=== PATIENT | male | born 1980 | race Caucasian/White ===

== ENCOUNTER 2017-03-31 10:32 | Day surgery (SDC) | payer OTHER ==
[2017-03-31 10:56] VITALS: O2SAT 96
--- NOTE | 2017-03-31 11:11 | EDPHY ---
H & P Smoking Status: Heavy smoker Time Seen by Provider: 03/31/17 10:59 HPI/ROS: CHIEF COMPLAINT: Index finger injury HISTORY OF PRESENT ILLNESS: This is a 36-year-old male presenting to the emergency department reports being at work around 0900 today the working with pneumatic total caught his left index finger in between a pneumatic cool and piece of wood. Patient states he was seen at [facility] for the injury was sent here to the ER for degloving injury partial amputation. Patient states has full range of motion, tetanus vaccine up-to-date REVIEW OF SYSTEMS: Constitutional: No fever, no chills. Eyes: No discharge. No blurred vision ENT: No sore throat. Cardiovascular: No chest pain, no palpitations. Respiratory: No cough, no shortness of breath. Gastrointestinal: No abdominal pain, no vomiting. Genitourinary: No difficulty urinating Musculoskeletal: No back pain. Left index finger injury Skin: No rashes. Neurological: No headache. (Trena Gonzalez) Physical Exam: General Appearance: Alert, no distress. Eyes: Pupils equal and round no pallor or injection. ENT, Mouth: Mucous membranes moist. Respiratory: There are no retractions, nonlabored respiratory effort Cardiovascular: Regular rate and rhythm. Gastrointestinal: Abdomen is soft and nontender. No mass Neurological: No focal deficits Skin: Warm and dry, no rashes. Musculoskeletal: Neck is supple nontender. Left index finger tip degloving distal phalanx bone .5cm showing full range of motion Extremities: full range of motion. Psychiatric: Patient is oriented X 3, calm, acting appropriate (Trena Gonzalez) Constitutional: Initial Vital Signs Temperature (C) 36.5 C 03/31/17 10:54 Heart Rate 81 03/31/17 10:54 Respiratory Rate 18 03/31/17 10:54 Blood Pressure 104/90 H 03/31/17 10:54 O2 Sat (%) 96 03/31/17 10:54 O2 Delivery Mode Room Air Allergies/Adverse Reactions: No Known Allergies Allergy (Unverified 03/31/17 10:54) Home Medications: Medication Instructions Recorded NK [No Known Home Meds] 03/31/17 Medical Decision Making - Diagnostics Imaging Results: Imaging Impressions Finger X-Ray 03/31/17 11:10 Impression: Soft tissue injury associated with the index finger. ED Course/Re-evaluation: Discussed ED plan of care: Wound irrigation, x-ray, will consult with Ortho Hand 1310: Spoke with Dr. Beckwith, patient will be going to the OR at 4:30 p.m. to groin down the distal phalanx. Wet to dry dressing with splint placed finger, patient NPO 1320: Discussed plan with patient. (Trena Gonzalez) Differential Diagnosis: Other differential diagnosis considered but not limited to finger amputation, phalanx fracture, and tendon laceration (Trena Gonzalez) Departure - Departure Disposition: To OP Cath/Surgery Clinical Impression: Degloving injury of finger Qualifiers: Encounter type: initial encounter Qualified Code(s): S61.209A - Unspecified open wound of unspecified finger without damage to nail, initial encounter Condition: Good Referrals: DR SATHISH [Other] - As per Instructions Rogelio Beckwith MD [Medical Doctor] -
[2017-03-31] MEDS ORDERED: ceFAZolin 2 GM/DEXTROSE 100 ML IV ONE ×2 (13:47→14:15)
[2017-03-31] MEDS ORDERED: HYDROmorphONE/DILAUDID 1 MG/ML SYR IVP PRN ×2 (13:48→18:09)
[2017-03-31] MEDS ORDERED: CEFAZOLIN 2 GM/DEXTROSE/100 ML BAG IV ONE (14:04)
--- NOTE | 2017-03-31 15:04 | GHP ---
[f rep st] HISTORY AND PHYSICAL DATE OF ADMISSION: 03/31/2017 CHIEF COMPLAINT: Left index finger injury. HISTORY OF PRESENT ILLNESS: The patient is a pleasant 36-year-old male who presents to the emergency department at [facility] with a left index finger injury. He reports that he was working at around 9 o' clock this morning when he had his left index finger caught in a pneumatic press , between the press and a piece of wood. The patient states he was initially seen at [facility] for the injury, and was subsequently sent to the emergency room for a degloving injury and possible partial amputation. The wound was cleaned in the ED, however, after discussion with Dr. Beckwith as the customer relations representative hand orthopedist, Presently, the patient states he has some [id number] pain, which is well controlled with medications. He notes full ROM, and states he has an up-to-date tetanus vaccine. He denies any additional injuries with this episode, as well as any significant previous injury history to the left index finger. He has no additional concerns or complaints at this time. PAST MEDICAL HISTORY: None, this patient denies any significant past medical history. PAST SURGICAL HISTORY: None, the patient states he has no previous surgical history. CURRENT MEDICATIONS: None, the patient states he does not currently taking any medications or supplements. ALLERGIES: The patient states he has no known allergies to medications. SOCIAL HISTORY: The patient states that he is a heavy smoker. The patient also reports occasional alcohol consumption. The patient denies any recreational drug use. FAMILY HISTORY: The patient reports no significant contributory family history today. The patient does state that his maternal grandfather of possible colon cancer. No additional contributory family history is reported. REVIEW OF SYSTEMS: The patient notes a possible history of heart arrhythmia with the use of Ephedra in the past. He does note that this was not worked up by any medical providers, and that he has discontinued this, and all supplements. Otherwise, a 10-point review of systems was performed today with no additional concerns, complaints, or abnormal findings not noted in the HPI or PMH. PHYSICAL EXAMINATION: VITAL SIGNS: Height is 180.34 cm, weight is 99.79 kg, blood pressure 104/90, heart rate 81, respirations 18, O2 saturation 96% on room air, temperature 36.5 degrees Celsius. GENERAL: A healthy-appearing male who presents in NAD. Nontoxic in appearance. HEENT: EOMI, PERRLA. Ears and nares are patent and without discharge. OP is clear. NECK: NTTP, full ROM, supple. Negative Lhermitte's and Spurling's right and left. No cervical LAD noted. CARDIOVASCULAR: RRR, no M/C/G/R. RESPIRATORY: CTAB, no increased WOB noted. ABDOMEN: Soft, NT/ND, no HSM noted. MUSCULOSKELETAL: The left hand reveals a left index finger Degloving of the distal phalanx bone. Approximately 5 mm of the distal soft tissue is missing. The surrounding area is consistent with a degloving injury. No extended streaking erythema, calor, discharge or induration is noted. Patient is able to flex and extend the digit with mild discomfort. Radial and ulnar pulses are intact and equal compared bilaterally. Examination of the left wrist and hand reveal NTTP of the distal radius and ulna, carpals, metacarpals 1 through 5, and digits 1, 3 through 5. ROM of digits 1, 3 through 5 are WAL compared bilaterally. DNVI BUE. SKIN: Please see above dictation. No additional ecchymosis, erythema, calor, edema is noted. NEUROLOGIC: Nonfocal, no deficits noted. DTRs are 1+ bilaterally in the UE and LE with symmetry. PSYCH: A and O x3, appropriate mood and affect. Speech noted to be fluent and fluent. RADIOGRAPHS: Three-views of the left index finger are reviewed today showing a soft tissue laceration and soft tissue loss over the distal aspect of the index finger. No underlying osseous abnormality or no foreign bodies are noted. No joint dislocation or subluxation is noted. ASSESSMENT: Left index finger distal degloving injury, traumatic amputation. PLAN: This patient's case and radiographs were discussed with Dr. Beckwith today. After discussing treatment options with the patient, including surgical intervention, surgery to completion of the amputation and possible repair of the nail matrix, were discussed, as well as risks and benefits of these procedures. At this time, the patient has elected to proceed with the completion of the amputation, and possible nail matrix repair, of the left index finger to be performed by Dr. Beckwith. A signed informed consent was obtained, and the patient was provided with a prescription for [place] 5/325 mg q.4-6h, as needed for pain for postoperative pain management. He was given 30 of this medication. He will also be placed on IV Ancef for antibiotic prophylaxis. All of the patient's questions were answered today and his concerns addressed. The patient will be seen postoperatively in approximately a 10-14 days for a wound check and suture removal, or sooner with any additional concerns or complaints. This procedure is scheduled performed at approximately 1630 hours today at [facility], and again will be performed by Dr. Rogelio Beckwith. It has been my pleasure to assist in the care of this patient. /[id number]/MODL MTDD
[2017-03-31 16:02] VITALS: RESP 16
[2017-03-31 16:04] VITALS: BP 110/78; PULSE 67; TEMP 97.9
[2017-03-31] MEDS ORDERED: MIDAZOLAM 2 MG/2 ML VIAL ONE (16:45)
[2017-03-31] MEDS ORDERED: PROPOFOL 200 MG/20 ML VIAL ONE (16:51)
[2017-03-31] MEDS ORDERED: fentaNYL 100 MCG/2 ML INJ ONE ×3 (16:56→18:09)
[2017-03-31] MEDS ORDERED: LIDOCAINE 2% 5 ML SDV ONE (16:57)
[2017-03-31] MEDS ORDERED: BACITRACIN 50,000 UNITS/10 ML SYR IRR ONE (17:17)
[2017-03-31] MEDS ORDERED: POLYMYXIN B SULFATE 500,000 UNIT/10 ML SYR IRR ONE (17:17)
[2017-03-31] MEDS ORDERED: ONDANSETRON 4 MG/2 ML VIAL ONE (17:38)
[2017-03-31] MEDS ORDERED: DEXAMETHASONE 4 MG/ML VIAL ONE (17:39)
[2017-03-31] MEDS ORDERED: HYDROCODONE/APAP 5/325 TAB ONE (18:58)
--- NOTE | 2017-04-01 04:40 | GOP ---
[f rep st] OPERATIVE REPORT DATE OF OPERATION: 03/31/2017 SURGEON: Rogelio Beckwith MD ANESTHESIA: General. PREOPERATIVE DIAGNOSIS: 1. Left 2nd finger amputation through distal tuft with nail. 2. Nail matrix injury. POSTOPERATIVE DIAGNOSIS: 1. Left 2nd finger amputation through distal tuft with nail. 2. Nail matrix injury. PROCEDURE PERFORMED: 1. Debridement left 2nd fingertip amputation. 2. Shortening of amputation through distal phalanx with repair of amputated fingertip and nail matr ix. FINDINGS: DESCRIPTION OF PROCEDURE: Patient was taken to the operating room, administered general anesthesia, placed in supine position. Left upper extremity was prepped and draped in normal sterile fashion. The finger tip was debrided removing devascularized flaps of skin margins. The nail matrix was par tially debrided. The distal tuft was exposed. In order to get appropriate coverage, this had to be further shorten down. This was done with a small rongeur. Thorough lavage was performed with copi ous amounts of normal saline with bacitracin solution. 3000 cc were passed through the fingertip wo und. The margins of the eponychial folds were then closed to a volar flap that was established. Th is was done with a 4-0 nylon suture. Nail matrix was then apposed with a 6-0 Vicryl suture. A ster ile compression dressing was applied. The patient tolerated procedure well, was transferred back to recovery in stable condition. There were no operative complications. COMPLICATIONS: None. /[id number]/MODL
== END 2017-03-31 19:15 | disposition home or self-care (01) ==
LOC: FSGY 16:00
PROVIDERS: ATTEND Orthopaedic Surgery Sports Medicine
PROC: 0X6P0Z3 Detachment at Left Index Finger, Low, Open Approach (ICD-10-PCS; principal; 2017-03-31 16:30)
DX: S68.121A Partial traumatic metacarpophalangeal amputation of left index finger, initial encounter (principal); W23.1XXA Caught, crushed, jammed, or pinched between stationary objects, initial encounter; Y99.0 Civilian activity done for income or pay
CPT/HCPCS: J0690; J1100; J2250; J2405; J2704; J3010

== ENCOUNTER 2017-11-21 10:35 | Emergency (ER) | payer OTHER ==
[2017-11-21 10:48] VITALS: RESP 16
[2017-11-21] MEDS ORDERED: CEPHALEXIN 500 MG CAP PO ONE (10:57)
--- NOTE | 2017-11-21 10:59 | EDPHY ---
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 He is complaining of pain to distal phalanx right middle digit. He is complaining of decreased sensation distally. Denies flexor or extensor deficits. Occurred shortly prior to arrival. PRIMARY CARE PROVIDER: Worker's compensation REVIEW OF SYSTEMS: A ten point review of systems was performed and is negative with the exception of the items mentioned in the HPI PHYSICAL EXAM (Prior to examination, patient consented to physical exam, hands were washed and my usual and customary physical exam procedures followed) 1) GENERAL: Well-developed, well-nourished, alert and oriented. Appears to be in no acute distress. 2) HEAD: Normocephalic 3) HEENT: sclera anicteric 4) LUNGS: Breathing comfortably. 5) SKIN: Right middle digit partial nail avulsion, removed revealing complex nail bed laceration extending onto the skin. 6) MUSCULOSKELETAL: FDS FDP function intact. Extensor function intact. 7) NEUROLOGIC: Decreased 2 point discrimination distally (Marysol,D Bhumi) Constitutional: Initial Vital Signs Temperature (C) 37.1 C 11/21/17 10:44 Heart Rate 96 11/21/17 10:44 Respiratory Rate 16 11/21/17 10:44 Blood Pressure 134/81 H 11/21/17 10:44 O2 Sat (%) 99 11/21/17 10:44 O2 Delivery Mode Room Air Allergies/Adverse Reactions: No Known Allergies Allergy (Unverified 03/31/17 10:54) Home Medications: Medication Instructions Recorded Cephalexin [Keflex] 500 mg PO TID 7 Days cap 11/21/17 MDM/Departure - [facility] Imaging Results: Imaging Impressions Finger X-Ray 11/21/17 10:57 Impression: 1. Chip fracture associated with the distal tuft right third digit with moderate soft tissue swelling and small gas bubble. Procedures: Procedure: Laceration repair. I explained the indications, risks and benefits for both laceration repair and anesthetic administration. Verbal consent was obtained from the patient and parent. The laceration on the location was anesthetized using 0.5% bupivicaine without epinephrine digital nerve block. After anesthetic administered the patient was observed for a period of time and had no apparent adverse effects. The wound was cleaned, prepped, draped in normal sterile fashion and explored to its base. No foreign body seen, no foreign bodies palpated. Be partial nail avulsion was temporarily completely removed, the nail bed laceration closed with 4 simple interrupted 5 0 Vicryl sutures and the nail subsequently replaced. Skin edges closed with 6 simple interrupted 5 O Prolene sutures. Bulky sterile dressing applied. (Melly Gregg) Medications Given: Discontinued Medications Cephalexin HCl (Keflex) 500 mg PO EDNOW ONE PRN Reason: Protocol Stop: 11/21/17 10:58 Last Admin: 11/21/17 11:00 Dose: 500 mg ED Course/Re-evaluation: PHYSICIAN DOCUMENTATION: The patient was evaluated and managed by the Physician Engineering Consultant. My co- signature indicates that I have reviewed this chart and I agree with the findings and plan of care as documented. I am the secondary supervising physician. (Arnoldo Cai) I reviewed the patient's x-rays with him showing a small avulsion tuft fracture. The patient has a complex nail bed laceration which with tissue edges reapproximated. He will necessitate follow up with Hand surgery on-call, started on Keflex. (Melly Gregg) - Depart Disposition: Home, Routine, Self-Care Clinical Impression: Finger laceration Qualifiers: Encounter type: initial encounter Finger: middle finger Damage to nail status: with damage Foreign body presence: without foreign body Laterality: right Qualified Code(s): S61.312A - Laceration without foreign body of right middle finger with damage to nail, initial encounter Condition: Good Instructions: Laceration (ED) Prescriptions: Cephalexin [Keflex] 500 mg PO TID 7 Days cap Referrals: Michael Blanco MD [Medical Doctor] - 11/24/17
[2017-11-21 12:39] VITALS: BP 125/80; PULSE 82; TEMP 97.9; O2SAT 96
== END 2017-11-21 12:40 | disposition home or self-care (01) ==
PROC: 0HQQXZZ Repair Finger Nail, External Approach (ICD-10-PCS; principal; 2017-11-21)
DX: S61.312A Laceration without foreign body of right middle finger with damage to nail, initial encounter (principal); F17.200 Nicotine dependence, unspecified, uncomplicated; W23.0XXA Caught, crushed, jammed, or pinched between moving objects, initial encounter